=== PATIENT | female | born 1990 | race Caucasian/White ===

== ENCOUNTER 2016-09-15 15:03 | Inpatient (IN) | payer BC ==
[~2016-09-15] VITALS: Ht 170.3 cm; Wt 91.6 kg
[2016-10-05] VITALS (54 sets, daily range): BP systolic 103–216; BP diastolic 47–565; PULSE 76–125; TEMP 97.4–98.9
[2016-10-05] MEDS ORDERED: PRENATAL1 TA7 PO (07:27)
[2016-10-05 08:00] LABS: BASO % 0.4 % (0.0-2.0); EOS # 0.1 (0.0-0.7); EOS % 1.1 % (0-4.0); GRAN # 8.4 (1.4-6.5); GRAN % 74.3 % (42.2-75.2); LYMPH # 1.7 (1.2-3.4); LYMPH % 14.8 % (20.0-51.0); MEAN CELL VOLUME 77 fl (80.0-100.0); MEAN CORPUSCULAR HGB CONC 33 g/dl (33.0-37.0); MEAN PLATELET VOLUME 11.4 fl (7.4-10.4); MONO % 8.7 % (1.7-9.3); PLATELET COUNT 310 K/mm3 (130-400); RED BLOOD COUNT 4.31 M/mm3 (4.10-5.30); WHITE BLOOD COUNT 11.3 K/mm3 (4.8-10.8)
[2016-10-05 08:05] LABS: HEMATOCRIT 33.2 % (37.0-47.0); HEMOGLOBIN 10.9 g/dl (12.5-16.0); MEAN CORPUSCULAR HEMOGLOBIN 25 pg (27.0-31.0)
[2016-10-06 01:30] VITALS: BP 116/56; PULSE 95; TEMP 98
[2016-10-06 05:10] VITALS: BP 108/55; PULSE 86; TEMP 98.3
[2016-10-06 07:19] VITALS: BP 109/56; PULSE 88; TEMP 97.4
[2016-10-06 07:32] LABS: BASO % 0.2 % (0.0-2.0); EOS # 0.1 (0.0-0.7); EOS % 0.5 % (0-4.0); GRAN # 10.6 (1.4-6.5); LYMPH # 1.3 (1.2-3.4); LYMPH % 10.1 % (20.0-51.0); MEAN CELL VOLUME 79 fl (80.0-100.0); MEAN CORPUSCULAR HGB CONC 32 g/dl (33.0-37.0); MONO % 7.7 % (1.7-9.3); PLATELET COUNT 233 K/mm3 (130-400); RED BLOOD COUNT 3.59 M/mm3 (4.10-5.30); REDCELL DISTRIBUTION WIDTH-CV 15.3 % (11.5-14.5); WHITE BLOOD COUNT 13.1 K/mm3 (4.8-10.8)
[2016-10-06 07:33] LABS: HEMATOCRIT 28.5 % (37.0-47.0); HEMOGLOBIN 9.2 g/dl (12.5-16.0); MEAN CORPUSCULAR HEMOGLOBIN 26 pg (27.0-31.0)
[2016-10-06 15:51] VITALS: BP 128/62; PULSE 97; TEMP 97.6
[2016-10-06 21:20] VITALS: BP 23/59; PULSE 101; TEMP 97.7
[2016-10-07 07:30] VITALS: BP 112/55; PULSE 82; TEMP 97.7
[2016-10-07] MEDS ORDERED: IBU800 M1 PO (08:47)
[2016-10-07] MEDS ORDERED: PERCOCET 325 MG1 TA2 PO (08:47)
== END 2016-10-07 12:50 | disposition home or self-care (01) | DRG 766 ==
LOC: LDR 10-05 06:58 → OB 10-05 18:30 → EDSTATUS 10-09 07:47 → LDRO 10-09 15:02
PROVIDERS: Obstetrics & Gynecology
PROC: 10D00Z1 Extraction of Products of Conception, Low, Open Approach (ICD-10-PCS; principal; 2016-10-05)
PROC: 3E033VJ Introduction of Other Hormone into Peripheral Vein, Percutaneous Approach (ICD-10-PCS; 2016-10-05)
DX: O36.63X0 Maternal care for excessive fetal growth, third trimester, not applicable or unspecified (principal); O62.1 Secondary uterine inertia; O99.013 Anemia complicating pregnancy, third trimester; D64.9 Anemia, unspecified; O69.81X0 Labor and delivery complicated by cord around neck, without compression, not applicable or unspecified; Z3A.39 39 weeks gestation of pregnancy; Z37.0 Single live birth
CPT/HCPCS: J0690; J1885; J2270; J2370; J2405; J2590; J7120